=== PATIENT | male | born 1945 | race Native Hawaiian/Other Pacific Islander ===

== ENCOUNTER 2020-03-04 16:45 | Emergency (ER) | payer OTHER, MEDICARE ==
[~2020-03-04] VITALS: Ht 185.4 cm; Wt 106.6 kg
[2020-03-04 17:18] LABS: PLATELET COUNT 216 K/uL (142-355); POTASSIUM 3.7 mmol/L (3.6-5.2)
[2020-03-04 17:34] LABS: PARTIAL THROMBOPLASTIN TIME 21.5 SECONDS (24.5-33.6)
[2020-03-04] MEDS ORDERED: ASA LOW DOSE81 MG PO (18:30)
[2020-03-04] MEDS ORDERED: CLOP75TA2 PO (18:30)
[2020-03-04 19:50] VITALS: BP 170/63; TEMP 98.6
== END 2020-03-04 19:50 | disposition home or self-care (01) ==
LOC: ED 16:51
PROVIDERS: Hospitalist
DX: S06.0X0A Concussion without loss of consciousness, initial encounter (principal); S00.03XA Contusion of scalp, initial encounter; S86.812A Strain of other muscle(s) and tendon(s) at lower leg level, left leg, initial encounter; S86.811A Strain of other muscle(s) and tendon(s) at lower leg level, right leg, initial encounter; S40.812A Abrasion of left upper arm, initial encounter; S40.811A Abrasion of right upper arm, initial encounter; R10.2 Pelvic and perineal pain; I70.0 Atherosclerosis of aorta; V86.55XA Driver of 3- or 4- wheeled all-terrain vehicle (ATV) injured in nontraffic accident, initial encounter; Y92.89 Other specified places as the place of occurrence of the external cause
CPT/HCPCS: 36415; 80048; 80320; 85027; 85610; 85730; 90471; 90715; 96365; 96375; 99284; J0690; J2270; J2405; J3370; Q9963

== ENCOUNTER 2020-03-16 15:19 | Emergency (ER) | payer OTHER ==
[~2020-03-16] VITALS: Ht 185.4 cm; Wt 106.6 kg
[~2020-03-16 15:19] MED LIST: ASA LOW DOSE81 MG PO; CLOP75TA2 PO
[2020-03-16 15:20] VITALS: TEMP 99
[2020-03-16 16:16] LABS: PLATELET COUNT 179 K/uL (142-355)
[2020-03-16 16:24] LABS: POTASSIUM 3.6 mmol/L (3.6-5.2)
[2020-03-16 18:03] VITALS: BP 184/70
== END 2020-03-16 18:08 | disposition home or self-care (01) ==
LOC: ED 15:19
PROVIDERS: Emergency Medicine
DX: R42 Dizziness and giddiness (principal)
CPT/HCPCS: 80053; 81000; 82962; 85027; 93005; 99283

== ENCOUNTER 2020-03-30 15:03 | Emergency (ER) | payer OTHER ==
[~2020-03-30] VITALS: Ht 185.4 cm; Wt 106.6 kg
[2020-03-30 15:15] VITALS: TEMP 98.1
[2020-03-30 15:51] LABS: PLATELET COUNT 213 K/uL (142-355)
[2020-03-30 16:01] LABS: POTASSIUM 4.2 mmol/L (3.6-5.2); SODIUM 137 mmol/L (136-145)
[2020-03-30 16:56] VITALS: BP 166/76
== END 2020-03-30 16:56 | disposition home or self-care (01) ==
LOC: ED 15:03
PROVIDERS: Hospitalist
DX: R55 Syncope and collapse (principal); T50.995A Adverse effect of other drugs, medicaments and biological substances, initial encounter; Y92.89 Other specified places as the place of occurrence of the external cause
CPT/HCPCS: 80053; 80320; 82550; 83880; 84484; 85027; 85610; 85730; 93005; 96360; 96375; 99284; J2405

== ENCOUNTER 2021-03-06 11:24 | Outpatient (CLI) | payer OTHER | END 2021-03-06 19:11 | disposition home or self-care (01) | LOC: RAD 11:24 | PROVIDERS: ATTEND Nurse Practitioner Family | DX: M25.511 Pain in right shoulder (principal) ==

== ENCOUNTER 2021-09-17 13:04 | Outpatient (CLI) | payer OTHER | END 2021-09-17 18:54 | disposition home or self-care (01) | LOC: RESP 13:04 | PROVIDERS: ATTEND Internal Medicine | DX: Z01.818 Encounter for other preprocedural examination (principal); I25.10 Atherosclerotic heart disease of native coronary artery without angina pectoris; Z95.5 Presence of coronary angioplasty implant and graft; I10 Essential (primary) hypertension ==